=== PATIENT | female | born 1955 | race Hispanic/Latino ===

== ENCOUNTER 2024-10-17 13:12 | Emergency (ER) | payer OTHER ==
[~2024-10-17] VITALS: Ht 165.1 cm; Wt 108.9 kg
[~2024-10-17 13:12] MED LIST: ATOR20TA65 PO; BUME1TAB6 PO; CLIN-141 PO; DOXY100T2 PO; LISI10TA24 PO
--- NOTE | 2024-10-17 15:19 | ERN ---
General Chief Complaint: Abnormal Labs Stated Complaint: HIGH LAB RESULTS, REFERRAL FROM PHYSICIAN Time Seen by MD: 13:13 Source: patient History of Present Illness Initial Comments PATIENT IS A 68-YEAR-OLD FEMALE COMING IN TO BE EVALUATED FOR ABNORMAL LABS. PER PATIENT SHE WAS SEEN TWO DAYS AGO AND THEY STATE THAT SHE HAD ABNORMAL LABS. PATIENT DOES NOT KNOW WHICH LABS WERE ABNORMAL BUT SHE IS HERE FOR FURTHER EVALUATION. NO COMPLAINT. SHE ALSO STATES THAT SHE WAS PLACED ON DIURETICS BUT WAS RECENTLY TAKEN OFF HER DIURETICS. SHE WAS NOT DIURETICS DUE TO PEDAL EDEMA AND A LOWER EXTREMITY CELLULITIS. Allergies: Coded Allergies: No Known Allergies (Unverified Allergy, Unknown, 10/11/24) No Known Drug Allergies (Unverified Allergy, Unknown, 10/11/24) Home Meds Active Scripts Bumetanide (Bumetanide) 1 Mg Tablet, 1 TAB PO BID for 30 Days, #60 TAB 0 Refills Prov:OTIS SLADE 10/13/24 Doxycycline Hyclate (Doxycycline Hyclate) 100 Mg Tablet, 1 TAB PO BID for 10 Days, #20 TAB 0 Refills Prov:OTIS SLADE 10/13/24 Clindamycin HCl (Clindamycin HCl) 300 Mg Capsule, 1 CAP PO TID for 10 Days, #30 CAP 0 Refills Prov:OTIS SLADE 10/13/24 Reported Medications Atorvastatin Calcium (Atorvastatin Calcium) 20 Mg Tablet, 1 TAB PO DAILY 10/11/24 Lisinopril (Lisinopril) 10 Mg Tablet, 1 TAB PO DAILY 10/11/24 Past Medical History Past Medical History: Anxiety, Arthritis, Depression, High Cholesterol, Hypertension, Other Medical History Other: PVD Past Surgical History: Appendectomy, Other Family History Family History: Negative Social History Social History: Negative Female( History) History: Not Applicable ROS Dictation CONSTITUTIONAL: NO CHILLS, NO FEVER, NO WEAKNESS, NO DIAPHORESIS, NO MALAISE. HEAD/FACE: NO SIGNS OF TRAUMA. EENT: NO EYE PAIN, NO BLURRED VISION, NO TEARING, NO DOUBLE VISION, NO EAR PAIN, NO EAR DISCHARGE, NO NOSE PAIN, NO NASAL CONGESTION, NO THROAT PAIN, NO THROAT SWELLING, NO MOUTH PAIN. RESPIRATORY: NO COUGH, NO ORTHOPNEA, NO SOB, NO STRIDOR, NO WHEEZING. CARDIOVASCULAR: NO CHEST PAIN, NO EDEMA, NO PALPITATIONS, NO SYNCOPE. GASTROINTESTINAL/ABDOMINAL: NO ABDOMINAL PAIN, NO CONSTIPATION, NO DIARRHEA, NO NAUSEA, NO VOMITING. GENITOURINARY: NO ABNORMAL DISCHARGE, NO DYSURIA, NO FREQUENT URINATION, NO HEMATURIA. NO COMPLAINTS OF PAIN IN THE GENITALS. MUSCULOSKELETAL: NO BACK PAIN, NO GOUT, NO JOINT PAIN, NO JOINT SWELLING, NO MUSCLE PAIN, NO MUSCLE STIFFNESS, NO NECK PAIN. INTEGUMENTARY: NO CHANGE IN COLOR, NO CHANGE IN HAIR/NAILS, NO DRYNESS, NO LESION, NO LUMPS, NO RASH. NEUROLOGICAL/PSYCH: NO ANXIETY, NOT DEPRESSED, NO EMOTIONAL PROBLEM, NO HEADACHE, NO NUMBNESS, NO PRE-EXISTING DEFICIT, NO HISTORY OF SEIZURES, NO TREMORS, NO WEAKNESS. HEMATOLOGIC/LYMPHATIC: NOT ANEMIC, NO HISTORY OF BLOOD CLOTS, NO APPARENT BLEEDING, NO BRUISING, GLANDS NOT SWOLLEN. ALL SYSTEMS NEGATIVE, EXCEPT NOTED. Physical Exam Physical Exam Dictation VITAL SIGNS: REVIEWED. GENERAL APPEARANCE: ALERT, ORIENTED X3, NO ACUTE DISTRESS, OBESE. HEAD AND FACE: NON-TRAUMATIC. EYES: PERRL, PINK CONJUNCTIVAS, EYELID NO TRAUMA, ANTERIOR CHAMBER CLEAR. EARS: PINNAS INTACT AND NO SIGNS OF TRAUMA OR ERYTHEMA. EAR CANALS CLEAR AND NO DISCHARGE. TMS NO ERYTHEMA. NOSE: NO DISCHARGE, NO BLEEDING. OROPHARYNX: MOUTH NORMAL, TEETH NO CARIES, TONGUE PINK. PHARYNX CLEAR, NO ERYTHEMA. TONSILS NO EXUDATES, NO ABSCESSES NOTED. MUCOUS MEMBRANE MOIST. NECK: SUPPLE, NON-TENDER, NO THYROMEGALY, NO MASSES, NO JVD, NO BRUITS. BREAST: DEFERRED. CHEST: NO TENDERNESS, NO CREPITUS, NO PARADOXICAL MOVEMENT, NO RETRACTIONS. LUNGS: CLEAR, WELL-VENTILATED, SYMMETRIC, NO RALES, NO WHEEZING, NO RHONCHI, NO STRIDOR, GOOD BREATH SOUNDS BILATERALLY. HEART: REGULAR RATE, REGULAR RHYTHM, NO MURMUR, NO GALLOPS. VASCULAR: NO PERIPHERAL EDEMA. ABDOMEN: SOFT, POSITIVE BOWEL SOUNDS, NONDISTENDED, NO GUARDING, NONTENDER, NO REBOUND, NO MASSES NO HEPATOMEGALY, NO SPLENOMEGALY, NO ORTIZ'S SIGN, NO HERNIAS. RECTAL: DEFERRED. GENITAL: DEFERRED. NEUROLOGICAL: NORMAL SPEECH, GROSS MOTOR FUNCTION INTACT, GROSS SENSORY FUNCTION INTACT. MUSCULOSKELETAL: NECK NONTENDER, FULL RANGE OF MOTION, BACK NONTENDER, FULL RANGE OF MOTION. EXTREMITIES: NONTENDER, FULL RANGE OF MOTION. SKIN: COLOR PINK, DRY, NO TURGOR, NO RASH, NO LACERATIONS, NO ABRASIONS, NO CONTUSIONS. LYMPHATICS: DEFERRED. Results Laboratory and Microbiology Lab and Micro Result Laboratory Tests Test 10/17/24 15:40 10/17/24 17:48 White Blood Count 10.1 K/uL (4.8-10.8) Red Blood Count 4.34 MIL/uL (4.00-5.50) Hemoglobin 13.5 g/dL (12.0-16.0) Hematocrit 40.4 % (36-48) Mean Corpuscular Volume 93.1 fL (79-99) Mean Corpuscular Hemoglobin 31.1 pg (27.0-33.0) Mean Corpuscular Hemoglobin Concent 33.4 g/dL (32.0-36.0) Red Cell Distribution Width 14.1 % (11.0-15.5) Platelet Count 446 K/uL (130-400) H Mean Platelet Volume 9.3 fL (7.5-10.5) Immature Granulocyte % (Auto) 5.4 % (0-1) H Neutrophils (%) (Auto) 74.7 % (40.0-77.0) Lymphocytes (%) (Auto) 14.1 % (21.0-51.0) L Monocytes (%) (Auto) 3.3 % (3.0-13.0) Eosinophils (%) (Auto) 1.5 % (0.0-8.0) Basophils (%) (Auto) 1.0 % (0.0-5.0) Neutrophils # (Auto) 7.6 K/uL (1.8-7.7) Lymphocytes # (Auto) 1.4 K/uL (1.0-4.8) Monocytes # (Auto) 0.3 K/uL (0.1-1.0) Eosinophils # (Auto) 0.15 K/uL (0.00-0.70) Basophils # (Auto) 0.10 K/uL (0.00-0.20) Absolute Immature Granulocyte (auto 0.55 K/uL (0-1) Nucleated Red Blood Cells 0.0 % (0.0-0.19) Prothrombin Time 11.2 SEC (9.6-11.6) Prothromb Time International Ratio 1.06 (0.85-1.15) Activated Partial Thromboplast Time 26.6 SEC (26.3-35.5) Sodium Level 138 mmol/L (136-145) Potassium Level 3.7 mmol/L (3.5-5.1) Chloride Level 98 mmol/L (101-111) L Carbon Dioxide Level 28 mmol/L (21-32) Blood Urea Nitrogen 16 mg/dL (7-18) Creatinine 1.0 mg/dL (0.5-1.0) Glomerular Filtration Rate Calc 61 mL/min (>90) Random Glucose 122 mg/dL (70-105) H Total Calcium 9.7 mg/dL (8.5-10.1) Magnesium Level 2.20 mg/dL (1.80-2.40) Total Bilirubin 2.9 mg/dL (0.2-1.0) H Aspartate Amino Transf (AST/SGOT) 371 U/L (10-37) H Alanine Aminotransferase (ALT/SGPT) 430 U/L (12-78) H Alkaline Phosphatase 327 U/L (50-136) H Total Creatine Kinase 14 U/L (21-232) #L Troponin I High Sensitivity < 4 ng/L (4-50) L B-Type Natriuretic Peptide 14 pg/mL (0-100) Total Protein 8.2 g/dL (6.0-8.3) Albumin 3.1 g/dL (3.5-5.0) L Urine Color YELLOW (YELLOW) Urine Appearance CLOUDY (CLEAR) H Urine pH 6.5 (5.0-8.0) Urine Specific Reynolds 1.009 (1.001-1.031) Urine Protein NEGATIVE mg/dL (NEGATIVE) Urine Glucose (UA) NEGATIVE mg/dL (NEGATIVE) Urine Ketones NEGATIVE mg/dL (NEGATIVE) Urine Occult Blood NEGATIVE (NEGATIVE) Urine Nitrate NEGATIVE (NEGATIVE) Urine Bilirubin NEGATIVE mg/dL (NEGATIVE) Urine Urobilinogen 0.2 mg/dL (0.2-1.0) Urine Leukocyte Esterase NEGATIVE Tarik/uL Urine RBC 0-1 /HPF (0-1) Urine WBC 6-10 /HPF (0-1) H Urine Squamous Epithelial Cells MANY /HPF (0-2) Urine Bacteria None /HPF (None Seen) Labs Reviewed?: Yes MDM MDM: DIFFERENTIAL DIAGNOSIS: RATIONALE: TESTS CONSIDERED AND ORDERED SECONDARY TO SHARED DECISION MAKING INCLUDE: PREVIOUS OUTSIDE RECORDS REVIEWED: OLD ER VISITS. RISK OF COMPLICATION AND/OR MORBIDITY OR MORTALITY OF PATIENT MANAGEMENT: NONE MEDICATIONS-PER MEDICATION RECONCILIATION NEED FOR HOSPITALIZATION: PATIENT DOES NOT MEET CRITERIA FOR HOSPITALIZATION. NEED FOR EMERGENCY MAJOR/MINOR SURGERY: NO THERE ARE NO SOCIAL CONCERNS WITH THIS PATIENT. PRESCRIPTION DRUG MANAGEMENT PRESCRIPTIONS WILL INCLUDE SYMPTOMATIC CARE PATIENT'S PRIOR EXTERNAL MEDICAL RECORDS FROM OTHER ER VISITS WERE REVIEWED BY ME INDICATED. PRIOR TESTING AND RESULTS FROM PREVIOUS VISITS WERE REVIEWED. PRIOR TESTS WERE TAKEN INTO ACCOUNT WITH MEDICAL DECISION MAKING AND RESOURCE UTILIZATION, INDEPENDENT HISTORIAN/HISTORIANS WERE USED TO OBTAIN COMPLETE MEDICAL HISTORY. I INDEPENDENTLY INTERPRETED THE TEST THAT WERE PERFORMED, RESULTS WERE REVIEWED BY ME AND CONSIDERED FINDINGS ON RADIOLOGY IF ORDERED. MEDICAL MANAGEMENT AND EXAMINATION INTERPRETATION DISCUSSIONS WERE HAD BY ME WITH OTHER QUALIFIED HEALTHCARE PROFESSIONALS INDICATED FOR THE PATIENT'S CARE. Patient's laboratory studies showed an elevation of the patient's LFTs. CT scan and ultrasound both showed a fatty liver but no acute disease processes. I discussed the antibiotics that the patient was given on her discharge from the hospital four days ago and they both could cause a rise in her LFTs. Alternatively the diuretic that the patient was given could have decreased blood flow to the liver. The patient has already stopped taking the diuretic because it was making her too tired. I will discharge the patient from the hospital on Keflex to complete the course of antibiotics for her cellulitis associated lymphedema. Currently the cellulitis is resolving nicely. The patient will follow up with her primary care physician in three or four days and repeat her LFTs. In the meantime I will order a hepatitis viral panel. ED Course Orders Procedure Category Date Status Time Cbc With Differential LAB 10/17/24 Complete 14:50 Prothrombin Time With LAB 10/17/24 Complete INR 14:50 B-Type Natriuretic LAB 10/17/24 Complete Peptide 14:50 Magnesium LAB 10/17/24 Complete 14:50 Creatine Kinase, Total LAB 10/17/24 Complete 14:50 Troponin I High LAB 10/17/24 Complete Sensitivity 14:50 Urinalysis Profile LAB 10/17/24 Complete 14:50 Partial LAB 10/17/24 Complete Thromboplastin Time 14:50 Comprehensive LAB 10/17/24 Complete Metabolic Panel 14:50 Us Abdominal Ruq\Ltd US 10/17/24 Resulted 17:59 Ct Abdomen/Pelvis W/O CT 10/17/24 Resulted Contrast 17:59 Culture Urine HIEU 10/17/24 In Process 19:02 Vital Signs Date Time Temp Pulse Resp B/P (MAP) Pulse Ox O2 Delivery O2 Flow Rate FiO2 10/17/24 18:30 98.8 84 18 148/69 99 Room Air* 0 21 10/17/24 17:30 99.0 84 18 147/65 99 Room Air* 0 10/17/24 16:23 84 18 143/61 96 Room Air* 0 10/17/24 13:53 99.1 84 20 133/40 99 Room Air DX & DISP Disposition: Discharge Departure Impression: Primary Impression: Elevated LFTs Additional Impression: Fatty liver Condition: Stable Scripts Cephalexin Monohydrate (Keflex) 500 Mg Cap 500 MG PO QID for 5 Days, #20 CAP Prov: ENOC HARMON MD 10/17/24 Additional Instructions: Please stopped taking the clindamycin and the doxycycline. Please take the Keflex that I have written for for four more days. Then follow-up with your the [facility] care physician for a repeat of your LFTs. Hopefully they start to decrease. If they continue to increase however please come to the hospital for admission for further workup. Please tell your primary care physician to check the results of the hepatitis viral panel. Referrals: SONI ROMERO M.D. (PCP) GIANNA ASHFORD MD October 17, 2024 15:19 ENOC HARMON MD October 17, 2024 20:20
[2024-10-17 15:48] LABS: EOSINOPHILS # (AUTO) 0.15 K/uL (0.00-0.70); EOSINOPHILS % (AUTO) 1.5 % (0.0-8.0); HEMATOCRIT 40.4 % (36-48); IMMATURE GRANULOCYTE ABSOLUTE 0.55 K/uL (0-1); LYMPHOCYTES # (AUTO) 1.4 K/uL (1.0-4.8); LYMPHOCYTES % (AUTO) 14.1 % (21.0-51.0); MEAN CORPUSCULAR HEMOGLOBIN 31.1 pg (27.0-33.0); MEAN CORPUSCULAR HGB CONC 33.4 g/dL (32.0-36.0); MEAN CORPUSCULAR VOLUME 93.1 fL (79-99); MONOCYTES # (AUTO) 0.3 K/uL (0.1-1.0); MONOCYTES % (AUTO) 3.3 % (3.0-13.0); NEUTROPHILS # (AUTO) 7.6 K/uL (1.8-7.7); NEUTROPHILS % (AUTO) 74.7 % (40.0-77.0); PLATELET COUNT (AUTO) 446 K/uL (130-400); RED BLOOD CELL COUNT(AUTO) 4.34 MIL/uL (4.00-5.50); RED CELL DISTRIBUTION WIDTH 14.1 % (11.0-15.5); WHITE BLOOD COUNT (AUTO) 10.1 K/uL (4.8-10.8)
[2024-10-17 15:58] LABS: POTASSIUM 3.7 mmol/L (3.5-5.1)
[2024-10-17 16:06] LABS: INR 1.06 (0.85-1.15); PROTHROMBIN TIME 11.2 SEC (9.6-11.6)
[2024-10-17 16:07] LABS: ALBUMIN 3.1 g/dL (3.5-5.0); BILIRUBIN,TOTAL 2.9 mg/dL (0.2-1.0); MAGNESIUM 2.2 mg/dL (1.80-2.40); PARTIAL THROMBOPLASTIN TIME 26.6 SEC (26.3-35.5); TOTAL PROTEIN, SERUM 8.2 g/dL (6.0-8.3)
[2024-10-17 16:14] LABS: B-TYPE NATRIURETIC PEPTIDE 14 pg/mL (0-100)
--- NOTE | 2024-10-17 16:26 | NUR ---
PT WAS GIVEN URINE CUP AND ADVISED WE WILL BE WAITING ON URINE SAMPLE
[2024-10-17 18:10] LABS: BILIRUBIN,URINE NEGATIVE (NEGATIVE); COLOR,URINE YELLOW (YELLOW); GLUCOSE, URINE (UA) NEGATIVE (NEGATIVE); KETONES,URINE NEGATIVE (NEGATIVE); LEUKOCYTE ESTERASE ,URINE NEGATIVE Leu/uL (NEGATIVE); NITRATE,URINE NEGATIVE (NEGATIVE); OCCULT BLOOD,URINE NEGATIVE (NEGATIVE); PH,URINE 6.5 (5.0-8.0); PROTEIN,URINE NEGATIVE (NEGATIVE); UROBILINOGEN,URINE 0.2 mg/dL (0.2-1.0)
[2024-10-17 18:11] LABS: ADD UA MICROSCOPIC YES
--- NOTE | 2024-10-17 18:52 | HMCIMG ---
Exam Type: US ABDOMINAL RUQ\E\LTD Clinical Information: ruq pain Comparison: None Findings: The liver shows fatty infiltration and is enlarged, measuring 18.6 cm and is otherwise unremarkable. Doppler evaluation shows patent portal and hepatic veins. The gallbladder shows no significant abnormalities. Specifically, no calculi are seen. No bile duct dilatation is noted. The gallbladder wall measures 3 mm. The common bile duct measures 3 mm. The right kidney measures 10.7 x 4.6 cm- it shows no hydronephrosis or calculi, masses or other abnormalities. The pancreas is suboptimally visualized. The aorta and inferior vena cava show no significant abnormalities. IMPRESSION: FATTY LIVER INFILTRATION AND HEPATOMEGALY. OTHERWISE NORMAL RIGHT UPPER QUADRANT ABDOMINAL ULTRASOUND.
[2024-10-17 19:01] LABS: MUCUS,URINE RARE LPF (None Seen); RBC,URINE 0-1 /HPF (0-1); SQUAMOUS EPITHELIAL CELL,UR MANY /HPF (0-2)
[2024-10-17 19:02] LABS: APPEARANCE,URINE CLOUDY (CLEAR)
--- NOTE | 2024-10-17 19:11 | HMCIMG ---
Exam Type: CT ABDOMEN/PELVIS W/O CONTRAST Clinical Information: ruq pain Comparison: None CT Dose Index (CTDI): 10.20 mGy Dose Length Product (DLP): 530.00 total mGy-cm PROTOCOL: Routine noncontrast helical scanning of the abdomen and pelvis was performed at 5mm collimation. Findings: No evidence of nephro or ureterolithiasis is found. No hydronephrosis or ureteral dilatation is seen. The lung bases are clear. The stomach is unremarkable. It shows no wall thickening. No gross ulceration is seen. It is not overly distended. There are no surrounding inflammatory changes. No wall lesions are identified to suggest cancer. The spleen is unremarkable. It is not enlarged. The pancreas shows normal anatomy. It is not fatty replaced. It shows no lesions. The pancreatic duct is not dilated. The gallbladder is unremarkable. It shows no cholelithiasis. The gallbladder wall is normal in thickness. There is no pericholecystic fluid. The is no acute or chronic inflammation noted. The adrenal glands are unremarkable. There is no enlargement. No lesions are noted. The liver is unremarkable. It shows no focal masses. The appendix is unremarkable. It shows no evidence of inflammation. No appendicolith is seen. The small bowel is unremarkable. There is no evidence of dilatation to suggest obstruction. No evidence of adynamic ileus is seen. There is no small bowel wall thickening to suggest enteritis. The colon is unremarkable. The urinary bladder is unremarkable. There is no wall thickening to suggest tumor or inflammation. There are no intraluminal calculi. There are no diverticula. There is no evidence of chronic bladder outlet obstruction. There is no evidence of urinary bladder distention to suggest urinary retention. Calcified uterine fundal fibroid seen. The bony and vascular structures are unremarkable for the patient's age. IMPRESSION: NEGATIVE CT SCAN OF THE ABDOMEN AND PELVIS. NO RENAL STONES. NO ACUTE PATHOLOGY OR INFLAMMATION SEEN. This study was performed using dose reduction techniques to include automated exposure control and/or adjustment of the mA and/or kV according to patient size.
[2024-10-17] MEDS ORDERED: CEPH500B PO (20:20)
[2024-10-17 20:35] VITALS: BP 145/62; PULSE 84; RESP 18; TEMP 98.8; O2SAT 99
== END 2024-10-17 20:36 | disposition home or self-care (01) ==
LOC: EDH 13:12
DX: R79.89 Other specified abnormal findings of blood chemistry (principal); K76.0 Fatty (change of) liver, not elsewhere classified; E78.00 Pure hypercholesterolemia, unspecified; I10 Essential (primary) hypertension; M19.90 Unspecified osteoarthritis, unspecified site; F41.9 Anxiety disorder, unspecified; Z79.899 Other long term (current) drug therapy; Z90.49 Acquired absence of other specified parts of digestive tract
CPT/HCPCS: 36415; 74176; 76705; 80053; 81001; 82550; 83735; 83880; 84484; 85025; 85610; 85730; 87086; 99285